=== PATIENT | female | born 1980 | race Asian ===

== ENCOUNTER 2016-07-27 12:30 | Emergency (ER) | payer BC ==
[~2016-07-27] VITALS: Ht 162.6 cm; Wt 74.4 kg
[2016-07-27 12:45] VITALS: TEMP 98.2
[2016-07-27 13:32] LABS: PLATELET COUNT 188 K/uL (152-353)
[2016-07-27 13:37] LABS: POTASSIUM 3.5 mmol/L (3.6-5.2); SODIUM 137 mmol/L (136-145)
[2016-07-27 14:28] VITALS: BP 111/81
== END 2016-07-27 14:28 | disposition home or self-care (01) ==
LOC: ED 12:30
PROVIDERS: Emergency Medicine
DX: K29.70 Gastritis, unspecified, without bleeding (principal)
CPT/HCPCS: 36415; 80053; 81000; 81025; 82150; 82550; 83690; 84484; 85027; 86318; 96374; 96375; 99283; J2270; J2405

== ENCOUNTER 2017-03-03 11:58 | Emergency (ER) | payer BC ==
[~2017-03-03] VITALS: Ht 162.6 cm; Wt 72.6 kg
[2017-03-03 12:00] VITALS: TEMP 98.6
[2017-03-03 12:51] LABS: PLATELET COUNT 226 K/uL (152-353)
[2017-03-03 12:59] LABS: POTASSIUM 3.6 mmol/L (3.6-5.2); SODIUM 134 mmol/L (136-145)
[2017-03-03] MEDS ORDERED: [UNRECOGNIZED DRUG - OTHER] PO (13:14)
[2017-03-03] MEDS ORDERED: ZANTAC300 MG PO (13:15)
[2017-03-03] MEDS ORDERED: FLUC150T PO (13:16)
[2017-03-03] MEDS ORDERED: Z-PAK PO (13:16)
[2017-03-03] MEDS ORDERED: HYOSCYAMINE0.125 M2 PO (13:17)
[2017-03-03] MEDS ORDERED: BENTYL10 MG PO (13:18)
[2017-03-03 16:33] VITALS: BP 106/73
== END 2017-03-03 16:33 | disposition home or self-care (01) ==
LOC: ED 11:58
DX: G43.909 Migraine, unspecified, not intractable, without status migrainosus (principal); M26.69 Other specified disorders of temporomandibular joint; M62.838 Other muscle spasm
CPT/HCPCS: 36415; 80048; 81025; 85027; 96374; 96375; 99284; J1885; J2405; J3030

== ENCOUNTER 2017-03-10 11:44 | Outpatient (CLI) | payer BC ==
[~2017-03-10 11:44] MED LIST: BENTYL10 MG PO; FLUC150T PO; HYOSCYAMINE0.125 M2 PO; Z-PAK PO; ZANTAC300 MG PO; [UNRECOGNIZED DRUG - OTHER] PO
== END 2017-03-10 12:45 | disposition home or self-care (01) ==
LOC: MRI 11:44
DX: R51 Headache (principal); E23.6 Other disorders of pituitary gland; R11.0 Nausea

== ENCOUNTER 2018-03-11 10:17 | Outpatient (CLI) | payer BC | END 2018-03-11 20:13 | disposition home or self-care (01) | LOC: RAD 10:17 | DX: M54.9 Dorsalgia, unspecified (principal) ==

== ENCOUNTER 2019-07-18 11:57 | Outpatient (CLI) | payer OTHER | END 2019-07-18 23:07 | disposition home or self-care (01) | LOC: RAD 11:57 | DX: M25.531 Pain in right wrist (principal); M79.641 Pain in right hand ==

== ENCOUNTER 2019-10-25 01:56 | Emergency (ER) | payer OTHER ==
[~2019-10-25] VITALS: Ht 162.6 cm; Wt 74.4 kg
[2019-10-25 03:08] VITALS: BP 130/82; TEMP 98.8
== END 2019-10-25 03:08 | disposition home or self-care (01) ==
LOC: ED 01:56
PROC: 0HQEXZZ Repair Left Lower Arm Skin, External Approach (ICD-10-PCS; principal; 2019-10-25)
DX: S51.812A Laceration without foreign body of left forearm, initial encounter (principal); W26.0XXA Contact with knife, initial encounter; Y92.092 Bedroom in other non-institutional residence as the place of occurrence of the external cause
CPT/HCPCS: 90471; 90715; 99283

== ENCOUNTER 2019-10-31 10:34 | Emergency (ER) | payer OTHER ==
[~2019-10-31] VITALS: Ht 162.6 cm; Wt 74.4 kg
[2019-10-31 11:28] LABS: PLATELET COUNT 194 K/uL (152-353)
[2019-10-31 11:38] LABS: POTASSIUM 3.3 mmol/L (3.6-5.2)
[2019-10-31 12:30] VITALS: BP 126/82; TEMP 98.2
== END 2019-10-31 12:30 | disposition home or self-care (01) ==
LOC: ED 10:34
PROVIDERS: Family Medicine
DX: J02.0 Streptococcal pharyngitis (principal); U07.1 COVID-19; F17.210 Nicotine dependence, cigarettes, uncomplicated
CPT/HCPCS: 36415; 80053; 82150; 83605; 83690; 85027; 87040; 87502; 87635; 87651; 99284; U0002

== ENCOUNTER 2020-02-22 09:39 | Outpatient (CLI) | payer OTHER | END 2020-02-22 20:07 | disposition home or self-care (01) | LOC: MRI 09:39 | DX: G50.0 Trigeminal neuralgia (principal); G51.4 Facial myokymia; I10 Essential (primary) hypertension; R29.818 Other symptoms and signs involving the nervous system; R51.9 Headache, unspecified; F41.9 Anxiety disorder, unspecified; E23.6 Other disorders of pituitary gland; R11.0 Nausea; M62.838 Other muscle spasm | CPT/HCPCS: A9576 ==

== ENCOUNTER 2021-10-09 09:54 | Outpatient (CLI) | payer BC | END 2021-10-09 18:51 | disposition home or self-care (01) | LOC: MRI 09:54 | PROVIDERS: ATTEND Orthopaedic Surgery | DX: M25.561 Pain in right knee (principal); S83.241A Other tear of medial meniscus, current injury, right knee, initial encounter; S83.511A Sprain of anterior cruciate ligament of right knee, initial encounter; Y92.9 Unspecified place or not applicable ==

== ENCOUNTER 2022-05-24 09:18 | Emergency (ER) | payer BC ==
[~2022-05-24] VITALS: Ht 162.6 cm; Wt 74.4 kg
[2022-05-24 09:22] VITALS: TEMP 98.8
[2022-05-24 10:05] LABS: PLATELET COUNT 212 K/uL (152-353)
[2022-05-24 10:12] LABS: POTASSIUM 3.5 mmol/L (3.6-5.2)
[2022-05-24 11:05] VITALS: BP 122/74
== END 2022-05-24 11:09 | disposition home or self-care (01) ==
LOC: ED 09:18
PROVIDERS: Emergency Medicine
DX: U07.1 COVID-19 (principal)
CPT/HCPCS: 36415; 80048; 85027; 87502; 87635; 87651; 99283; U0001

== ENCOUNTER 2022-09-10 10:56 | Outpatient (CLI) | payer OTHER | END 2022-09-10 18:58 | disposition home or self-care (01) | LOC: US 10:56 | PROVIDERS: ATTEND Physician Assistant | DX: E05.90 Thyrotoxicosis, unspecified without thyrotoxic crisis or storm (principal) ==

== ENCOUNTER 2022-11-09 08:14 | Emergency (ER) | payer OTHER ==
[~2022-11-09] VITALS: Ht 162.6 cm; Wt 68.0 kg
[2022-11-09 08:17] VITALS: BP 110/86; TEMP 98
== END 2022-11-09 10:18 | disposition home or self-care (01) ==
LOC: ED 08:14
DX: L20.9 Atopic dermatitis, unspecified (principal)
CPT/HCPCS: 96374; 99284